=== PATIENT | male | born 1950 | race Hispanic/Latino ===

== ENCOUNTER 2018-06-16 11:51 | Outpatient (CLI) | payer MEDICARE, BC, MEDICAID ==
--- NOTE | 2018-06-16 14:25 | ULT ---
BILATERAL RENAL ULTRASOUND: History: 67-year-old male with history of chronic kidney disease. FINDINGS: Right kidney measures 12.3 x 5.7 x 4.9 cm. The left kidney measures 12.1 x 5.5 x 6.2 cm. No renal hyd ronephrosis. No perinephric process. Prominent appearing prostate gland. Prominent column of Aneesh i nvolving the central right kidney. Bladder is unremarkable. IMPRESSION: No evidence for hydronephrosis or perinephric process or other acute process. Evidence for some enlar gement of the prostate gland but incompletely evaluated on this study with only a partially full blad willow. POS: [facility]
== END 2018-06-16 11:52 | disposition home or self-care (01) ==
LOC: BICULT 11:51
PROVIDERS: ATTEND Internal Medicine Nephrology
DX: N18.3 Chronic kidney disease, stage 3 (moderate) (principal); N40.0 Benign prostatic hyperplasia without lower urinary tract symptoms
CPT/HCPCS: 76770

== ENCOUNTER 2018-08-02 17:05 | Inpatient (IN) | payer MEDICARE, BC, MEDICAID ==
[2018-08-02 17:45] LABS: #Basophils 0.1 thou/uL (0.0-0.2); #Eosinphils 0.2 thou/uL (0.0-0.7); #Lymphocytes 1.4 thou/uL (1.20-3.40); #Monocytes 1.2 thou/uL (0.11-0.59); #Neutrophils 10.6 thou/uL (1.40-6.50); %Basophils 0.4 % (0.0-1.0); %Eosinophils 1.2 % (0.0-10.0); %Lymphocytes 10.1 % (21.0-51.0); %Monocytes 8.7 % (0.0-10.0); %Neutrophils 79.5 % (42.0-75.0); Hemoglobin 10.8 g/dL (14.0-18.0); Mean Corpuscular HGB CONC 32.1 g/dL (32.0-36.0); Mean Corpuscular Hemoglobin 30.4 pg (27.0-31.0); Mean Corpuscular Volume 94.6 fL (78.0-98.0); Mean Platelet Volume 6.4 fL (7.4-10.4); Platelet Count 306 thou/uL (130-400); RBC Distribution Width 12.6 % (11.5-14.5); Red Blood Cell (RBC) Count 3.57 mill/uL (4.70-6.10); White Blood Cell (WBC) Count 13.4 thou/uL (4.8-10.8)
[2018-08-02 18:10] LABS: ALT (SGPT) 23 U/L (8-55); AST (SGOT) 26 U/L (5-34); Albumin 3.7 g/dL (3.4-4.8); Alkaline Phosphatase 156 U/L (40-150); Anion Gap 13 mmol/L (10-20); BUN (Urea Nitrogen) 29 mg/dL (8.4-25.7); Bilirubin, Total 0.7 mg/dL (0.2-1.2); CK (CPK) 266 U/L (30-200); Calc. Creatinine Clearance 0 mL/min (70-130); Calcium 9.8 mg/dL (7.8-10.44); Carbon Dioxide 22 mmol/L (23-31); Chloride 105 mmol/L (98-107); Estimated GFR-MDRD 23; Globulin 3.9 g/dL (2.4-3.5); Glucose 134 mg/dL (80-115); Potassium 4.8 mmol/L (3.5-5.1); Protein, Total 7.6 g/dL (5.8-8.1); Sodium 135 mmol/L (136-145)
[2018-08-02] MEDS ORDERED: Azithromycin 500 MG VIAL ONE ×3 (18:26→19:27)
[2018-08-02 18:32] LABS: CKMB 4.8 ng/mL (0-6.6)
--- NOTE | 2018-08-02 19:24 | RAD ---
PORTABLE AP CHEST X-RAY: 08/02/2018 HISTORY: Chest pain. COMPARISON: None available. FINDINGS: There are interstitial and patchy parenchymal changes at the left lung base, worrisome for pneumonia. There is a probable tiny left pleural effusion present. There is a linear and slight nodular densi ty in the right upper lung zone, which is probably related to superimposition of structures, as oppos ed to a pulmonary nodule, but a follow-up PA and lateral chest x-ray is suggested. The cardiac silhouette and pulmonary vasculature are within normal limits for the portable technique of the study. Vascular calcifications are seen in the thoracic aorta. Degenerative changes are note d in the spine. IMPRESSION: 1. Pneumonia, left lung base. Followup to complete resolution is recommended. 2. Nodular density projecting over the right upper lung zone. This is probably attributable to supe rimposition of structures, but this can also be evaluated on follow-up chest x-rays. POS: [facility]
[2018-08-02 21:02] LABS: Troponin I 0.067 ng/mL (< 0.028)
[2018-08-02] MEDS ORDERED: cefTRIAXone\\ROCEPHIN 2 GM in Sodium Chloride 0.9% 100 ML IVPB SCH (22:00)
[2018-08-02 23:54] LABS: Troponin I 0.074 ng/mL (< 0.028)
--- NOTE | 2018-08-03 | CON ---
DATE OF CONSULTATION: TYPE OF CONSULTATION: Nephrology consult. REASON FOR CONSULTATION: Acute kidney injury. HISTORY OF PRESENT ILLNESS: This is a very pleasant 67-year-old gentleman, who has a baseline creatinine of 2.1 to 2.4, presented to the hospital with weakness, dizziness, and swelling in his legs. The patient was on valsartan, which was stopped due to rise in creatinine. The patient denies headache, numbness, or chest pain. PAST MEDICAL HISTORY: 1. Hypertension. 2. Hyperlipidemia. 3. Acute kidney injury with chronic kidney disease, stage 4. 4. BPH. 5. History of diabetic retinopathy. MEDICATIONS: Home medication list reviewed. Hospital medication list reviewed. ALLERGIES: REVIEWED. REVIEW OF SYSTEMS: Fifteen-point review of systems was performed and negative except for positives noted above. NECK: No swelling or lumps. NOSE: No epistaxis or discharge. EYES: No diplopia or pain. MUSCULOSKELETAL: No joint pain. NEUROPSYCHIATIC SYSTEMS: No suicidal ideation. No ideation. SKIN: Denies any rash or ulcer. CONSTITUTIONAL: No fever or chills. PHYSICAL EXAMINATION: GENERAL: On exam, the patient is awake, alert. VITAL SIGNS: Reviewed. HEAD/NECK: Normocephalic. Atraumatic. EYES: EOMI. No deformity. EARS: Clear. No ulcers. NOSE: Intact. No lesions. MOUTH: Clear. No discharge. THROAT: Clear. No exudate. LUNGS: Clear. No crackles. CARDIAC: S1, S2. No rub. ABDOMEN: Benign. Bowel sounds positive. GENITALIA/RECTUM: Gil absent. BACK/EXTREMITIES: Edema 0+. NEUROLOGICAL: Alert and motor intact. LABORATORY DATA: Labs show hemoglobin is 10.8. ASSESSMENT AND PLAN: 1. Acute kidney injury with chronic kidney disease. 2. Cardiorenal syndrome, off angiotensin receptor bubba. 3. Hypertension. Consider calcium-channel bubba. 4. Anemia, stable. 5. Medications based on GFR are appropriate. We will evaluate creatinine and evaluate the need for dialysis. I have also stopped his metformin in the past. Job ID: [id number]
[2018-08-03] MEDS ORDERED: Nitroglycerin 0.4 MG TAB (25 Tab Bottle) PO PRN (02:00)
[2018-08-03] MEDS ORDERED: Calcium Carbonate 500 MG ChewTAB PO PRN (02:00)
[2018-08-03] MEDS ORDERED: Ondansetron ODT 4 MG TAB PO PRN (02:00)
[2018-08-03] MEDS ORDERED: Acetaminophen 325 MG TAB PO PRN (02:00)
[2018-08-03] MEDS ORDERED: Ondansetron PF 4 MG/2 ML Vial IVP PRN (02:00)
[2018-08-03] MEDS ORDERED: hydrALAZINE 20 MG/ML VIAL SLOW IVP PRN (02:03)
[2018-08-03] MEDS ORDERED: Dextrose 50% Abboject 50 ML SYRINGE SLOW IVP PRN (02:04)
[2018-08-03] MEDS ORDERED: Insulin Regular 300 UNITS/3 ML VIAL SC PRN (02:04)
[2018-08-03] MEDS ORDERED: Dextrose 5% in Water 1,000 ML IV PRN (02:04)
--- NOTE | 2018-08-03 02:50 | HP ---
PRIMARY CARE PHYSICIAN: Dr. Doreen Forrest. The patient was seen and examined on August 02, 2018. CHIEF COMPLAINT: Cough with generalized weakness of 1-week duration. History obtained with the help of a consulting solution manager. HISTORY OF PRESENT ILLNESS: The patient is a 67-year-old male with diabetes mellitus type 2, chronic kidney disease, hypertension, and hyperlipidemia, presented to the emergency room with above complaints. Over the last 1 week, the patient has gradual worsening generalized weakness along with cough. The cough was productive of scanty amount of phlegm. He also had some nausea and vomiting 2 days ago that has improved. He also noticed swelling in bilateral lower extremities. He felt febrile at home, however, did not record his temperature. He denies any sick contacts or travel. No orthopnea or paroxysmal nocturnal dyspnea reported. History was limited. He denies any previous cardiac issues. Again, the patient is a poor historian. In the emergency room, initial vital signs showed temperature 98, respirations 16, pulse of 87, blood pressure of 147/76 with O2 saturation of 97% on room air. His WBC was 13.4 with 79.5% neutrophils. Troponin was in an indeterminate range at 0.051 with normal CK-MB. His creatinine was 2.74, which is close to his baseline. His chest x-ray portable showed pneumonia in the left lung base. He received ceftriaxone and azithromycin in the emergency room. PAST MEDICAL HISTORY: 1. Diabetes mellitus type 2. 2. Hypertension. 3. Hyperlipidemia. 4. CKD stage 4. 5. Benign prostatic hypertrophy. 6. Diabetic retinopathy. PAST SURGICAL HISTORY: Reviewed with the patient and none. ALLERGIES: NO KNOWN DRUG ALLERGIES. CURRENT HOME MEDICATIONS: 1. Amlodipine 10 mg daily. 2. NovoLog Mix 70/30, 40 units in the morning and 35 units in the evening. 3. Irbesartan 150 mg daily. 4. Tradjenta 5 mg daily. 5. Metformin 1000 mg q.p.m. SOCIAL HISTORY: The patient currently lives at home with his family. He denies any current use of smoking, alcohol, or drug use. He is full code, makes his own decision with the help of his family. FAMILY HISTORY: Negative for inheritable diseases per patient report. REVIEW OF SYSTEMS: All other review of systems was reviewed and were found negative. PHYSICAL EXAMINATION: VITAL SIGNS: As discussed above. GENERAL: A 67-year-old male, in no apparent distress, feels generally weak. HEENT: Head is atraumatic, normocephalic. Sclerae anicteric. Moist mucous membranes. No oral lesion. NECK: Supple. No JVD appreciated. No carotid bruit. LUNGS: Showed bibasilar rales, more prominent at the lung base. Lungs were symmetrical. There were scattered rhonchi. No significant wheezing appreciated. HEART: S1, S2 present. Regular rate and rhythm. No rubs or gallops appreciated. ABDOMEN: Soft, obese. Bowel sounds present. No rebound or guarding. No costovertebral angle tenderness. EXTREMITIES: 2+ edema in bilateral lower extremities. No calf tenderness. SKIN: Warm and dry. LYMPH NODES: No palpable lymph nodes in the neck. PERIPHERAL VASCULAR: Radial pulses palpable bilaterally. MUSCULOSKELETAL: No joint swelling, tenderness. LAB FINDINGS: CBC showed WBC 13.4 with hemoglobin 10.8, hematocrit 33.8, platelets of 306. Chemistry showed sodium 135, potassium 4.8, chloride 105, bicarb 22, BUN 26, creatinine 2.74, glucose of 134. Troponin as discussed above. Creatinine in May was 2.19. Chest x-ray by my review as discussed above. EKG by my review showed sinus rhythm with nonspecific ST-T wave changes, especially in lateral leads. IMPRESSION: 1. Sepsis secondary to community-acquired pneumonia, suspected pneumococcal. 2. Acute kidney injury, baseline creatinine unknown. 3. Benign prostatic hypertrophy. 4. Hypertension. 5. Hyperlipidemia. 6. Elevated troponins, probably secondary to demand ischemia. 7. Bilateral lower extremity swelling, rule out congestive heart failure. 8. Anemia, suspected secondary to renal insufficiency. 9. Diabetes mellitus type 2. 10. Benign prostatic hypertrophy. PLAN: 1. The patient will be monitored on the telemetry unit. We will continue empiric antibiotics for pneumonia. We will hold irbesartan and metformin. We will also discontinue amlodipine due to lower extremity edema. He is currently saturating 92% on 3 L nasal cannula. We will hold IV fluids for now. We will recheck labs on a daily basis. Echocardiogram will be obtained. Fluid restriction. 2. The patient will require 2 to 3 days for stabilization. Plan of care was discussed with the patient in detail. He stated understanding. Job ID: [id number]
[2018-08-03 04:38] VITALS: BMI 38.0
[2018-08-03 06:51] LABS: Anion Gap 12 mmol/L (10-20); BUN (Urea Nitrogen) 29 mg/dL (8.4-25.7); Calc. Creatinine Clearance 37 mL/min (70-130); Calcium 9.5 mg/dL (7.8-10.44); Carbon Dioxide 24 mmol/L (23-31); Chloride 106 mmol/L (98-107); Estimated GFR-MDRD 23; Glucose 160 mg/dL (80-115); Potassium 5.2 mmol/L (3.5-5.1); Sodium 137 mmol/L (136-145)
--- NOTE | 2018-08-03 09:25 | ULT ---
BILATERAL LOWER EXTREMITY VENOUS DOPPLER ULTRASOUND: DATE: 08/03/2018. COMPARISON: None. HISTORY: Swelling, edema, assess for DVT. TECHNIQUE: Multiplanar, evangelista scale sonographic imaging of the venous structures bilateral lower extremities obta ined with color flow and spectral analysis. FINDINGS: Bilateral common femoral veins, femoral veins, and popliteal veins demonstrate normal blood flow, aug mentation, and compression. Bilateral greater saphenous veins, profunda femoral vein, and posterior tibial vein are patent as well. No evidence for DVT is seen on either side. IMPRESSION: No evidence for deep venous thrombosis of either lower extremity. POS: [facility]
--- NOTE | 2018-08-03 09:28 | ULT ---
BILATERAL RENAL ULTRASOUND: Date: 08/03/18 COMPARISON: None. HISTORY: Acute kidney injury, elevated renal function. TECHNIQUE: Multiplanar Eason scale sonographic imaging of the kidneys and urinary bladder obtained. FINDINGS: Right kidney measures 10.7 x 4.9 x 5.4 cm. Left kidney measures 11.0 x 5.7 x 5.9 cm. No renal mass, h ydronephrosis, or renal stone seen on either side. IMPRESSION: No acute findings. POS: KHALIDA
[2018-08-03] MEDS: Enoxaparin Sodium 30 MG/0.3 ML SYRINGE SC SCH (09:39)
[2018-08-03] MEDS: Aspirin 325 MG TAB PO SCH (09:39)
[2018-08-03] MEDS: hydrALAZINE 25 MG TAB PO SCH ×2 (09:40→20:55)
--- NOTE | 2018-08-03 09:40 | RAD ---
PA AND LATERAL CHEST: Date: 08/03/18 HISTORY: Shortness of breath. Follow-up pneumonia. COMPARISON: 08/02/18. FINDINGS: The patchy parenchymal changes at the left lung base do appear improved from prior study. There is mi ld increase in interstitial densities bilaterally, greater on the right, especially in the right mid lung zone at the right lung base, with slight patchy density in the right suprahilar as well as right infrahilar regions, and mild patchy density in the left mid lung zone, worrisome for either asymmetr ic pulmonary edema or infectious process. The cardiac silhouette is within normal limits. No other in terval change. IMPRESSION: 1. Increase in interstitial densities bilaterally compared to prior study with greater patchy pa renchymal changes in the right supra and infrahilar regions, as well as left mid lung zone. Parenchym al changes of the left lung base do appear mildly improved. Findings may be related to either asymmet jef pulmonary edema or developing infectious process. 2. Remote right-sided rib fractures. POS: [facility]IDA
--- NOTE | 2018-08-03 12:25 | PRG ---
DATE OF SERVICE: 08/03/2018 SUBJECTIVE: Patient was seen and examined at bedside and overnight events noted. Patient denies any shortness of breath or chest pain or palpitation. No history of nausea or vomiting or diarrhea or fever or chills or cramps. OBJECTIVE: GENERAL: This is a well-built male, in no apparent distress. VITAL SIGNS: Temperature 99.1, pulse 96, respiratory rate 22. Blood pressure 144/74. HEENT: Atraumatic, normocephalic. Oral mucosa is moist NECK: Supple. CARDIOVASCULAR: S1, S2 heard. Rate and rhythm regular. RESPIRATORY: Clear to auscultation. GASTROINTESTINAL: Abdomen is soft. MUSCULOSKELETAL: No tenderness. No edema. DERMATOLOGIC: No skin rash. NEUROLOGIC: Alert and awake and oriented X3. No focal neurologic deficits. Moving all the extremities. PSYCHIATRIC: Mood and affect normal. LABORATORY DATA: Potassium is 5.2, BUN is 29, creatinine is 2. ASSESSMENT AND PLAN 1. Acute kidney injury on chronic kidney disease. Avoid nephrotoxins. 2. Hypertension. 3. Anemia. 4. Hyperkalemia - follow potassium. Job ID: [id number] [facility]
--- NOTE | 2018-08-03 13:24 | PDOC.PN ---
- Subjective Encounter Start Date: 08/03/18 Encounter Start Time: 13:00 Subjective: f/u for bilat CAP on current Rocephin/Zithromax feeling better -: today. No prior hx of PNA. - Objective Resuscitation Status - Order Detail: 08/03/18 02:00 Resuscitation Status Routine Resuscitation Status: FULL: Full Resuscitation MAR Reviewed: Yes Vital Signs & Weight: Vital Signs (12 hours) Temp Pulse Resp BP Pulse Ox 08/03/18 11:37 99.3 F 103 H 22 H 140/69 93 L 08/03/18 10:11 102 H 18 94 L 08/03/18 09:40 96 08/03/18 09:34 99.1 F 96 22 H 144/74 H 93 L 08/03/18 06:51 85 L 08/03/18 06:49 93 20 91 L 08/03/18 04:00 98.5 F 95 20 139/71 91 L 08/03/18 03:45 92 L Weight Weight 228 lb 13.437 oz I&O: 08/02/18 08/03/18 08/04/18 06:59 06:59 06:59 Intake Total 260 Output Total 200 Balance 60 Result Diagrams: 08/02/18 17:36 08/03/18 05:01 Additional Labs: Accuchecks 08/02/18 22:37 POC Glucose 130 H Microbiology 08/02/18 18:19 Venous blood - Left Hand Blood Culture - Preliminary Specimen has been received and culture in progress. No Growth to date. 08/02/18 18:15 Venous blood - Right Arm Blood Culture - Preliminary Specimen has been received and culture in progress. No Growth to date. Radiology Reviewed by me: Yes (PCXR - patchy infiltrates bilat, LE sono - neg for DVT) EKG Reviewed by me: Yes (Tele - SR) Phys Exam - Physical Examination Constitutional: NAD HEENT: PERRLA, sclera anicteric, oral pharynx no lesions Neck: no nodes, no JVD, supple, full ROM few scattered coarse sounds S1, S2 Cardiovascular: RRR, no significant murmur, no rub, gallop Gastrointestinal: soft, non-tender, no distention, positive bowel sounds Musculoskeletal: pulses present, edema present Neurological: normal sensation, moves all 4 limbs Psychiatric: A&O x 3 Skin: normal turgor, cap refill <2 seconds Dx/Plan (1) Sepsis Code(s): A41.9 - SEPSIS, UNSPECIFIED ORGANISM Status: Acute Comment: Suspected pneumococcal and due to PNA, continue IV Rocephin/Zithromax (2) Community acquired bacterial pneumonia Code(s): J15.9 - UNSPECIFIED BACTERIAL PNEUMONIA Status: Acute Comment: Continue Rocephin/Zithromax, Duonebs (3) BETHANY (acute kidney injury) Code(s): N17.9 - ACUTE KIDNEY FAILURE, UNSPECIFIED Status: Acute Comment: Avoid nephrotoxic meds and limit contrast exposure, serial monitoring (4) CKD (chronic kidney disease), stage III Code(s): N18.3 - CHRONIC KIDNEY DISEASE, STAGE 3 (MODERATE) Status: Chronic Comment: See above, Renal sono negative (5) DM II (diabetes mellitus, type II), controlled Code(s): E11.9 - TYPE 2 DIABETES MELLITUS WITHOUT COMPLICATIONS Status: Chronic Comment: Hold home DM regimen due to BETHANY, continue ISS, ADA (6) Demand ischemia Code(s): I24.8 - OTHER FORMS OF ACUTE ISCHEMIC HEART DISEASE Status: Acute Comment: No evidence of ACS, suspect due to BETHANY/CKD - Plan plan discussed w/ family, continue antibiotics, social media editor, respiratory therapy Stable currently -: Continue Rocephin/Zithromax -: Duonebs q4h -: 2D echo pending -: AM lab: BMP, CBC * .
[2018-08-03] MEDS: Insulin Regular 300 UNITS/3 ML VIAL SC PRN (18:08)
[2018-08-03] MEDS: Azithromycin 500 MG in Sodium Chloride 0.9% 250 ML 250 ML IVPB SCH (20:55)
[2018-08-03] MEDS: cefTRIAXone\\ROCEPHIN 2 GM in Sodium Chloride 0.9% 100 ML IVPB SCH (22:25)
[2018-08-04 05:49] LABS: #Eosinphils 0.1 thou/uL (0.0-0.7); #Lymphocytes 1.2 thou/uL (1.20-3.40); #Monocytes 0.9 thou/uL (0.11-0.59); #Neutrophils 8.4 thou/uL (1.40-6.50); %Basophils 0.2 % (0.0-1.0); %Eosinophils 0.7 % (0.0-10.0); %Lymphocytes 11.4 % (21.0-51.0); %Monocytes 8.7 % (0.0-10.0); %Neutrophils 79.1 % (42.0-75.0); Mean Corpuscular HGB CONC 32.9 g/dL (32.0-36.0); Mean Corpuscular Hemoglobin 31.5 pg (27.0-31.0); Mean Corpuscular Volume 95.5 fL (78.0-98.0); Mean Platelet Volume 6.5 fL (7.4-10.4); Platelet Count 302 thou/uL (130-400); RBC Distribution Width 12.4 % (11.5-14.5); Red Blood Cell (RBC) Count 3.16 mill/uL (4.70-6.10); White Blood Cell (WBC) Count 10.6 thou/uL (4.8-10.8)
[2018-08-04 06:00] LABS: Anion Gap 12 mmol/L (10-20); BUN (Urea Nitrogen) 31 mg/dL (8.4-25.7); Calc. Creatinine Clearance 39 mL/min (70-130); Calcium 9.4 mg/dL (7.8-10.44); Carbon Dioxide 23 mmol/L (23-31); Chloride 105 mmol/L (98-107); Estimated GFR-MDRD 23; Glucose 218 mg/dL (80-115); Potassium 4.8 mmol/L (3.5-5.1); Sodium 135 mmol/L (136-145)
[2018-08-04] MEDS: Aspirin 325 MG TAB PO SCH (08:30)
[2018-08-04] MEDS: Enoxaparin Sodium 30 MG/0.3 ML SYRINGE SC SCH (08:30)
[2018-08-04] MEDS: Insulin Regular 300 UNITS/3 ML VIAL SC PRN ×3 (08:31→17:05)
--- NOTE | 2018-08-04 09:33 | PDOC.PN ---
- Subjective Encounter Start Date: 08/04/18 Encounter Start Time: 09:15 Subjective: f/u for PNA on Rocephin/Zithromax and pulm edema. Requiring -: high-flow O2 currently but denies CP or worsening SOB. Ate breakfast -: and voiding ok. - Objective Resuscitation Status - Order Detail: 08/03/18 02:00 Resuscitation Status Routine Resuscitation Status: FULL: Full Resuscitation MAR Reviewed: Yes Vital Signs & Weight: Vital Signs (12 hours) Temp Pulse Resp BP BP Pulse Ox 08/04/18 08:29 97.8 F 99 20 132/63 95 08/04/18 07:43 91 L 08/04/18 07:40 89 20 91 L 08/04/18 04:00 98.8 F 102 H 22 H 137/67 92 L 08/04/18 02:05 102 H 18 91 L 08/03/18 21:36 98 18 93 L Weight Admit Weight 228 lb 13.437 oz Weight 235 lb 7.259 oz I&O: 08/03/18 08/04/18 08/05/18 06:59 06:59 06:59 Intake Total 1400 Output Total 575 Balance 825 Result Diagrams: 08/04/18 04:47 08/04/18 04:47 Additional Labs: Accuchecks 08/04/18 08/03/18 08/03/18 08:00 10:54 05:34 POC Glucose 200 H 227 H 152 H Microbiology 08/02/18 18:19 Venous blood - Left Hand Blood Culture - Preliminary Specimen has been received and culture in progress. No Growth to date. 08/02/18 18:15 Venous blood - Right Arm Blood Culture - Preliminary Specimen has been received and culture in progress. No Growth to date. Laboratory Tests 08/02/18 08/02/18 08/02/18 17:36 17:36 17:36 WBC 13.4 H Hgb 10.8 L Potassium Creatinine Troponin I 0.051 H B-Natriuretic Peptide 615.3 H 08/02/18 08/02/18 08/03/18 20:31 23:08 05:01 WBC Hgb Potassium 5.2 H Creatinine 2.73 H Troponin I 0.067 H 0.074 H B-Natriuretic Peptide 08/03/18 05:01 WBC Hgb Potassium Creatinine Troponin I B-Natriuretic Peptide 439.6 H Radiology Reviewed by me: Yes (2D echo - EF 40-45%, mod LAE, anterolateral wall diminished) EKG Reviewed by me: Yes (Tele - Sinus tachycardia) Phys Exam - Physical Examination somnolent, opens eyes to questions HEENT: PERRLA, sclera anicteric, oral pharynx no lesions Neck: no nodes, no JVD, supple, full ROM coarse sounds bilat, diminished in bilat kurtz tachycardic S1, S2 Cardiovascular: no significant murmur, no rub, gallop obese Gastrointestinal: soft, no distention, positive bowel sounds Musculoskeletal: pulses present, edema present Neurological: normal sensation, moves all 4 limbs Psychiatric: A&O x 3 Skin: normal turgor, cap refill <2 seconds Dx/Plan (1) Sepsis Code(s): A41.9 - SEPSIS, UNSPECIFIED ORGANISM Status: Acute Comment: Suspected pneumococcal and due to PNA, continue IV Rocephin/Zithromax (2) Community acquired bacterial pneumonia Code(s): J15.9 - UNSPECIFIED BACTERIAL PNEUMONIA Status: Acute Comment: Continue Rocephin/Zithromax, Duonebs, add Solumedrol 40mg IV q6h (3) BETHANY (acute kidney injury) Code(s): N17.9 - ACUTE KIDNEY FAILURE, UNSPECIFIED Status: Acute Comment: Avoid nephrotoxic meds and limit contrast exposure, serial monitoring (4) CKD (chronic kidney disease), stage III Code(s): N18.3 - CHRONIC KIDNEY DISEASE, STAGE 3 (MODERATE) Status: Chronic Comment: See above, Renal sono negative (5) DM II (diabetes mellitus, type II), controlled Code(s): E11.9 - TYPE 2 DIABETES MELLITUS WITHOUT COMPLICATIONS Status: Chronic Comment: Hold home DM regimen due to BETHANY, continue ISS, ADA, resume Novolog 70/30 with 40u qam and 35u qhs (6) Demand ischemia Code(s): I24.8 - OTHER FORMS OF ACUTE ISCHEMIC HEART DISEASE Status: Acute Comment: Consult Cardiology regarding elevated troponin I and depressed EF on Echo. Continue ASA 325mg daily - Plan plan discussed w/ family, continue antibiotics, director of social media marketing, respiratory therapy Continue Rocephin/Zithromax -: Add Solumedrol 40mg IV q6h -: Lasix 40mg IV x 1 now then BID -: Consult Cardiology regarding elevated Troponin I/depressed EF -: AM lab: BMP, CBC * .
[2018-08-04] MEDS: hydrALAZINE 25 MG TAB PO SCH ×2 (10:26→21:16)
[2018-08-04 10:33] LABS: Actual Bicarbonate (HCO3a) 26.3 mEq/L (22-28); Base Excess (BEa) -0.8 mEq/L (-2.0 to +3.0); CO2 Tension 55.1 mmHg (35.0-45.0); Calcium, Ionized 1.25 mmol/L (1.12-1.30); Carboxyhemoglobin (COHb) 1.8 gm% (0.0-3.0); Hemoglobin (Hb) 10.5 g/dL (14.0-18.0); Potassium - ABG Lab 4.74 mmol/L (3.70-5.30)
[2018-08-04] MEDS ORDERED: Furosemide 40 MG/4 ML VIAL SLOW IVP SCH (10:45)
[2018-08-04 10:57] LABS: ALV-art Gradient 21.755 (0-20); O2 Tension (PaO2) 59.1 mmHg (> 80.0); Puncture Site RRA
--- NOTE | 2018-08-04 11:32 | PRG ---
DATE OF SERVICE: 08/04/2018 SUBJECTIVE: Patient was seen and examined at bedside and overnight events noted. Patient denies any shortness of breath or chest pain or palpitation. No history of nausea or vomiting or diarrhea or fever or chills or cramps. OBJECTIVE: GENERAL: This is a well-built male, in no apparent distress. VITAL SIGNS: Temperature 97.8. Heart rate 99. Respiratory rate 20. Blood pressure 132/63. HEENT: Atraumatic, normocephalic. Oral mucosa is moist NECK: Supple. CARDIOVASCULAR: S1, S2 heard. Rate and rhythm regular. RESPIRATORY: Clear to auscultation. GASTROINTESTINAL: Abdomen is soft. MUSCULOSKELETAL: No tenderness. No edema. DERMATOLOGIC: No skin rash. NEUROLOGIC: Alert and awake and oriented X3. No focal neurologic deficits. Moving all the extremities. PSYCHIATRIC: Mood and affect normal. LABORATORY DATA: Potassium 4.8, BUN is 31, creatinine is 2.7. ASSESSMENT AND PLAN: 1. Acute kidney injury on chronic kidney disease, stage 3. Renal function is stable. No acute indication for dialysis. 2. Hyperkalemia, better. 3. Edema. 4. Hypertension, stable. 5. Anemia. 6. Edema. 7. Cardiorenal syndrome. 8. Renal function is stable. Acute kidney injury, most likely from sepsis. We will follow. Avoid nephrotoxins. Job ID: [id number]
[2018-08-04] MEDS: Furosemide 40 MG/4 ML VIAL SLOW IVP SCH (14:46)
[2018-08-04] MEDS: Azithromycin 500 MG in Sodium Chloride 0.9% 250 ML 250 ML IVPB SCH (17:07)
[2018-08-04] MEDS: Carvedilol 3.125 MG TAB PO SCH (17:07)
[2018-08-04] MEDS ORDERED: Non-Formulary Item 1 EACH (Insulin Aspart Prot/Insuln Asp [Novolog Mix 70-30 Flexpen Syrn SQ SCH (21:00)
[2018-08-04] MEDS: cefTRIAXone\\ROCEPHIN 2 GM in Sodium Chloride 0.9% 100 ML IVPB SCH (21:15)
[2018-08-04] MEDS: Insulin NPH/Reg Insulin Hm 300 UNITS/3 ML VIAL SC SCH (21:16)
[2018-08-04] MEDS: Atorvastatin Calcium 20 MG TAB PO SCH (21:16)
--- NOTE | 2018-08-05 02:48 | CON ---
DATE OF CONSULTATION: 08/04/2018 HISTORY OF PRESENT ILLNESS: Mr. Solo is a 67-year-old male, who presented at 6 in the evening 2 nights ago. He presented with cough of 1 week duration. He is a poor historian. Subsequently, he has been admitted, placed on BiPAP and antimicrobial therapy. He has chronic kidney disease. PAST MEDICAL HISTORY: Remarkable for diabetes, hypertension, lipid disorder, diabetic retinopathy, and BPH. MEDICATIONS: Prior to admission, he was on; 1. Amlodipine. 2. Insulin. 3. Irbesartan. 4. Tradjenta. 5. Metformin. SOCIAL HISTORY: Nonsmoker, nondrinker, nondrug user. FAMILY HISTORY: Negative for lung disease in early age. REVIEW OF SYSTEMS: 10 point review of systems completed, otherwise negative. PHYSICAL EXAMINATION: GENERAL: He has BiPAP on. He appears comfortable. He is in no distress. VITAL SIGNS: He is afebrile. Heart rate is 84, respiratory rate is 20, and oximetry is 96 to 98 on BiPAP. This afternoon, he switched to nasal cannula; his oximetry is 93 on a 4 L cannula. HEAD: Unremarkable. NECK: Unremarkable. LUNGS: Remarkable for rhonchi bilaterally. HEART: Regular rhythm. S1 and S2 are normal. ABDOMEN: Soft and nontender. EXTREMITIES: Without clubbing, cyanosis, or edema. DIAGNOSTIC DATA: Echocardiogram shows an ejection fraction of 40% to 45% with anterolateral dyskinesis, [id number] mitral regurgitation. Chest radiograph from yesterday shows patchy bilateral infiltrates. IMPRESSION: Probable pneumonia. Co-existing cardiomyopathy, likely related to his diabetes. With his anterolateral asymmetry, one would wonder about a past myocardial infarction. Cardiology should be consulted. Lab has been reviewed. He has anemia with a hemoglobin of 10. His creatinine has been 2.73 today, 2.74 two days ago. Blood cultures are negative. Antimicrobial therapy probably can be simplified tomorrow. His steroid dosing probably can be simplified as well. Hopefully, he will continue to improve off BiPAP. TIME SPENT: This was a 50-minute consult, with greater than 50% of the time was spent on the unit coordinating care. Job ID: [id number] [id number]
[2018-08-05 04:46] LABS: Anion Gap 12 mmol/L (10-20); BUN (Urea Nitrogen) 36 mg/dL (8.4-25.7); Calc. Creatinine Clearance 37 mL/min (70-130); Calcium 9.8 mg/dL (7.8-10.44); Carbon Dioxide 25 mmol/L (23-31); Chloride 105 mmol/L (98-107); Estimated GFR-MDRD 22; Glucose 115 mg/dL (80-115); Potassium 5.2 mmol/L (3.5-5.1); Sodium 137 mmol/L (136-145)
[2018-08-05 05:19] LABS: Band 4 % (5-11); Hemoglobin 10.4 g/dL (14.0-18.0); Lymphocytes 8 % (21-51); MDiff Complete? YES; Mean Corpuscular HGB CONC 33.8 g/dL (32.0-36.0); Mean Corpuscular Hemoglobin 31.9 pg (27.0-31.0); Mean Corpuscular Volume 94.3 fL (78.0-98.0); Mean Platelet Volume 6.7 fL (7.4-10.4); Monocytes 1 % (0-10); Neutrophil 87 % (42-75); Platelet Count 345 thou/uL (130-400); RBC Distribution Width 12.4 % (11.5-14.5); Red Blood Cell (RBC) Count 3.27 mill/uL (4.70-6.10); White Blood Cell (WBC) Count 9.4 thou/uL (4.8-10.8)
[2018-08-05] MEDS: Furosemide 40 MG/4 ML VIAL SLOW IVP SCH ×2 (06:00→09:39)
--- NOTE | 2018-08-05 08:01 | PDOC.PN ---
- Subjective Encounter Start Date: 08/05/18 Encounter Start Time: 07:45 Subjective: f/u for acute hypoxic resp failure, PNA and CHF. Off BiPAP currently -: and tolerating O2 via NC. Feels better overall. - Objective Resuscitation Status - Order Detail: 08/03/18 02:00 Resuscitation Status Routine Resuscitation Status: FULL: Full Resuscitation MAR Reviewed: Yes Vital Signs & Weight: Vital Signs (12 hours) Temp Pulse Resp BP BP Pulse Ox 08/05/18 07:51 93 L 08/05/18 07:20 99.4 F 100 18 140/77 93 L 08/05/18 07:08 102 H 20 94 L 08/05/18 03:39 98.3 F 101 H 16 141/75 H 93 L 08/05/18 02:05 97 16 93 L 08/05/18 00:00 98.6 F 98 22 H 144/76 H 93 L 08/04/18 22:31 89 16 92 L 08/04/18 21:16 79 121/69 08/04/18 20:00 97.9 F 82 18 145/90 H 98 Weight Admit Weight 228 lb 13.437 oz Weight 231 lb 7.766 oz I&O: 08/04/18 08/05/18 08/06/18 06:59 06:59 06:59 Intake Total 1400 1795 Output Total 575 925 Balance 825 870 Result Diagrams: 08/05/18 03:45 08/05/18 03:45 Additional Labs: Accuchecks 08/05/18 08/04/18 08/04/18 05:33 21:10 16:28 POC Glucose 127 H 210 H 208 H 08/04/18 08/04/18 08/04/18 10:50 08:00 05:42 POC Glucose 165 H 200 H 229 H 08/03/18 08/03/18 20:18 17:05 POC Glucose 212 H 203 H Radiology Reviewed by me: Yes (2D echo - EF 40-45%) EKG Reviewed by me: Yes (Tele - Sinus tach in low 100's) Phys Exam - Physical Examination alert, smiling HEENT: PERRLA, sclera anicteric, oral pharynx no lesions Neck: no nodes, no JVD, supple, full ROM few exp wheezing, diminished in bases tachycardic S1, S2 Cardiovascular: no significant murmur, no rub, gallop obese Gastrointestinal: soft, non-tender, no distention, positive bowel sounds Musculoskeletal: pulses present, edema present Neurological: normal sensation, moves all 4 limbs Psychiatric: A&O x 3 Skin: normal turgor, cap refill <2 seconds Dx/Plan (1) Acute respiratory failure with hypoxia Code(s): J96.01 - ACUTE RESPIRATORY FAILURE WITH HYPOXIA Status: Acute Comment: Improved with trial of BiPAP now d/c'd, continue O2 via NC, see below (2) Community acquired bacterial pneumonia Code(s): J15.9 - UNSPECIFIED BACTERIAL PNEUMONIA Status: Acute Comment: Continue Rocephin/Zithromax, Duonebs, add Solumedrol 40mg IV q6h (3) Sepsis Code(s): A41.9 - SEPSIS, UNSPECIFIED ORGANISM Status: Acute Comment: Suspected pneumococcal and due to PNA, continue IV Rocephin/Zithromax, resolving (4) BETHANY (acute kidney injury) Code(s): N17.9 - ACUTE KIDNEY FAILURE, UNSPECIFIED Status: Acute Comment: Avoid nephrotoxic meds and limit contrast exposure, serial monitoring (5) CKD (chronic kidney disease), stage III Code(s): N18.3 - CHRONIC KIDNEY DISEASE, STAGE 3 (MODERATE) Status: Chronic Comment: See above, Renal sono negative (6) DM II (diabetes mellitus, type II), controlled Code(s): E11.9 - TYPE 2 DIABETES MELLITUS WITHOUT COMPLICATIONS Status: Chronic Comment: Hold home DM regimen due to BETHANY, continue ISS, ADA, resume Novolog 70/30 with 40u qam and 35u qhs (7) Demand ischemia Code(s): I24.8 - OTHER FORMS OF ACUTE ISCHEMIC HEART DISEASE Status: Acute Comment: Consult Cardiology regarding elevated troponin I and depressed EF on Echo. Continue ASA 325mg daily - Plan plan discussed w/ family, continue antibiotics, social services analyst, respiratory therapy, out of bed/ambulate, DVT proph w/SCDs Stable currently -: Continue Rocephin/Zithromax -: Continue Solumedrol another 24h -: OOB/ambulate -: Transfer to telemetry * AM lab: BMP * Likely home in 24h
[2018-08-05] MEDS: Carvedilol 3.125 MG TAB PO SCH (08:28)
[2018-08-05] MEDS: Aspirin 325 MG TAB PO SCH (08:28)
[2018-08-05] MEDS: hydrALAZINE 25 MG TAB PO SCH ×2 (08:29→20:42)
[2018-08-05] MEDS: Enoxaparin Sodium 30 MG/0.3 ML SYRINGE SC SCH (08:29)
[2018-08-05] MEDS: Insulin NPH/Reg Insulin Hm 300 UNITS/3 ML VIAL SC SCH ×2 (08:30→20:46)
[2018-08-05] MEDS ORDERED: Carvedilol 3.125 MG TAB PO SCH (08:48)
[2018-08-05] MEDS ORDERED: Non-Formulary Item 1 EACH (Insulin Aspart Prot/Insuln Asp [Novolog Mix 70-30 Flexpen Syrn SQ SCH (09:00)
[2018-08-05] MEDS: Insulin Regular 300 UNITS/3 ML VIAL SC PRN (11:10)
--- NOTE | 2018-08-05 13:49 | CON ---
DATE OF CONSULTATION: HISTORY OF PRESENT ILLNESS: The patient is a 67-year-old gentleman, who presents with increasing dyspnea. The patient has previously undergone a cardiac evaluation. He states approximately 2 years ago that he was seen by a helper/driver in [place]. He was told that he was in reasonably good health. The patient does suffer from diabetes mellitus and chronic renal insufficiency. The patient was admitted with fevers and chills. He was admitted with possible pneumonia. PAST MEDICAL HISTORY: 1. Diabetes mellitus. 2. Hypertension. 3. Chronic renal insufficiency. 4. Dyslipidemia. 5. Diabetic retinopathy. PAST SURGICAL HISTORY: Eye surgery. ALLERGIES: NO KNOWN DRUG ALLERGIES. MEDICATIONS: 1. Norvasc 10 daily. 2. Metformin 1000 nightly. 3. Tradjenta 5 daily. 4. Avapro 150 daily. 5. Insulin. SOCIAL HISTORY: Nonsmoker. FAMILY HISTORY: There is a positive family history of coronary artery disease. REVIEW OF SYSTEMS: Unremarkable. PHYSICAL EXAMINATION: GENERAL: Obese gentleman with blood pressure 151/79. NECK: Full. LUNGS: Have bilateral wheezes. HEART: Regular rate and rhythm. Normal S1 and S2. ABDOMEN: Distended. EXTREMITIES: Showed trace bilateral edema. VASCULAR: Radial pulses are 2+. SKIN: Warm and dry. LABORATORY DATA: Sodium 135, potassium 4.8, chloride 105, bicarbonate 23, BUN 31, and creatinine 2.73. Glucose 218. BNP was 439. White blood cell count is 10.6 , hemoglobin 10.0, hematocrit 30.2, and platelets are 302. His EKG reveals normal sinus rhythm with a T wave abnormality suggestive of ischemia. His chest x-ray revealed a normal cardiac silhouette with possible right-sided pneumonia with right-sided infiltrate. IMPRESSION: 1. Respiratory failure, possibly due to pneumonia. 2. Decreased left ventricular systolic function. 3. Renal failure. 4. Hypertension. 5. Dyslipidemia. 6. Obesity. This gentleman presents with pneumonia and respiratory failure. He has a mild decrease in left ventricular function. The patient will be started on Coreg. We would recommend adding lipid lowering medication since he is diabetic. We will obtain records from his previous helper/driver and will follow this patient with you through his hospitalization. Job ID: [id number] [facility]
--- NOTE | 2018-08-05 15:31 | PRG ---
DATE OF SERVICE: 08/05/2018 SUBJECTIVE: Patient was seen and examined at bedside and overnight events noted. Patient denies any shortness of breath or chest pain or palpitation. No history of nausea or vomiting or diarrhea or fever or chills or cramps. OBJECTIVE: GENERAL: This is a well-built male, in no apparent distress. VITAL SIGNS: Temperature 99.2. Heart rate 99. Respiratory rate 18. Blood pressure 133/92. HEENT: Atraumatic, normocephalic. Oral mucosa is moist NECK: Supple. CARDIOVASCULAR: S1, S2 heard. Rate and rhythm regular. RESPIRATORY: Clear to auscultation. GASTROINTESTINAL: Abdomen is soft. MUSCULOSKELETAL: No tenderness. No edema. DERMATOLOGIC: No skin rash. NEUROLOGIC: Alert and awake and oriented X3. No focal neurologic deficits. Moving all the extremities. PSYCHIATRIC: Mood and affect normal. LABORATORY DATA: Potassium is 5.2, BUN is 3.6, and creatinine is 2.8. ASSESSMENT AND PLAN: 1. Acute kidney injury on chronic kidney disease, stage 3, most likely from sepsis. Renal function seems to be stable, making more urine and clinically better. We will continue to monitor. Avoid nephrotoxins. No acute indication for dialysis. 2. Hyperkalemia, limit potassium. 3. Edema, controlled. 4. Hypertension. 5. Anemia. 6. Cardiorenal syndrome. Overall, renal function is stable. No acute indication for dialysis. Job ID: [id number]
--- NOTE | 2018-08-05 15:53 | EKG ---
Test Reason : Blood Pressure : / mmHG Vent. Rate : 098 BPM Atrial Rate : 098 BPM P-R Int : 184 ms QRS Dur : 096 ms QT Int : 366 ms P-R-T Axes : 037 -15 100 degrees QTc Int : 467 ms Normal sinus rhythm Cannot rule out Anterior infarct , age undetermined T wave abnormality, consider lateral ischemia Abnormal ECG Confirmed by BLAYNE FLORES ([id number]), editorial assistant EULOGIO SHERWOOD ([id number]) on 08/05/2018 3:53:08 PM Referred By: Confirmed By:BLAYNE FLORES
[2018-08-05] MEDS: Carvedilol 6.25 MG TAB PO SCH (17:14)
[2018-08-05] MEDS: Azithromycin 500 MG in Sodium Chloride 0.9% 250 ML 250 ML IVPB SCH (17:14)
--- NOTE | 2018-08-05 17:39 | PRG ---
DATE OF SERVICE: 08/05/2018 SUBJECTIVE: States he feels much better today. He is on nasal cannula 3 L. OBJECTIVE: VITAL SIGNS: His oximetry is 94 to 96. He is afebrile. Heart rate is 90, respiratory rate 19, and blood pressure 124/71. LUNGS: Remarkable for crackles bilaterally. He is in no distress. HEART: Regular rhythm. ABDOMEN: Soft. EXTREMITIES: Without asymmetry. LABORATORY DATA: White count 9.4, hemoglobin 10.4, and platelets 345. Sodium 137, potassium 5.2, chloride 105, bicarb 25, BUN 36, and creatinine 2.8. Creatinine was 2.7 yesterday. IMPRESSION: 1. Pneumonia. 2. Chronic kidney disease. 3. Diabetes. PLAN: Continue current supportive care. He probably will need noninvasive ventilatory support in the morning. If he remains stable, he can move to a medical bed. Job ID: [id number]
[2018-08-05] MEDS: Atorvastatin Calcium 20 MG TAB PO SCH (20:42)
[2018-08-05] MEDS: cefTRIAXone\\ROCEPHIN 2 GM in Sodium Chloride 0.9% 100 ML IVPB SCH (20:47)
[2018-08-06 06:02] LABS: Anion Gap 13 mmol/L (10-20); BUN (Urea Nitrogen) 53 mg/dL (8.4-25.7); Calc. Creatinine Clearance 36 mL/min (70-130); Calcium 9.8 mg/dL (7.8-10.44); Carbon Dioxide 24 mmol/L (23-31); Chloride 106 mmol/L (98-107); Estimated GFR-MDRD 22; Glucose 81 mg/dL (80-115); Potassium 5.1 mmol/L (3.5-5.1); Sodium 138 mmol/L (136-145)
[2018-08-06] MEDS: Carvedilol 6.25 MG TAB PO SCH (08:03)
[2018-08-06] MEDS: Enoxaparin Sodium 30 MG/0.3 ML SYRINGE SC SCH (08:03)
[2018-08-06] MEDS: Aspirin 325 MG TAB PO SCH (08:03)
[2018-08-06] MEDS: hydrALAZINE 25 MG TAB PO SCH (08:03)
[2018-08-06] MEDS: Furosemide 40 MG/4 ML VIAL SLOW IVP SCH (08:04)
[2018-08-06] MEDS: Insulin NPH/Reg Insulin Hm 300 UNITS/3 ML VIAL SC SCH (08:05)
--- NOTE | 2018-08-06 10:32 | PRG ---
DATE OF SERVICE: 08/06/2018 SUBJECTIVE: Patient was seen and examined at bedside and overnight events noted. Patient denies any shortness of breath or chest pain or palpitation. No history of nausea or vomiting or diarrhea or fever or chills or cramps. OBJECTIVE: GENERAL: This is a well-built male, in no apparent distress. VITAL SIGNS: Temperature 96.8. Heart rate 80. Respiratory rate 18. Blood pressure 166/79. HEENT: Atraumatic, normocephalic. Oral mucosa is moist NECK: Supple. CARDIOVASCULAR: S1, S2 heard. Rate and rhythm regular. RESPIRATORY: Clear to auscultation. GASTROINTESTINAL: Abdomen is soft. MUSCULOSKELETAL: No tenderness. No edema. DERMATOLOGIC: No skin rash. NEUROLOGIC: Alert and awake and oriented X3. No focal neurologic deficits. Moving all the extremities. PSYCHIATRIC: Mood and affect normal. LABORATORY DATA: Potassium is 5.1, BUN is 53, and creatinine is 2.9. ASSESSMENT AND PLAN: 1. Acute kidney injury on chronic kidney disease, stage 4. Renal function is stable. 2. Chronic kidney disease, stage 4. 3. Hyperkalemia, limit potassium. 4. Edema, controlled. 5. Hypertension. 6. Anemia. 7. Cardiorenal syndrome. No indication for dialysis. Renal function seems to be stable. We will closely followup. We will follow. Avoid nephrotoxins. Job ID: [id number]
[2018-08-06] MEDS: Insulin Regular 300 UNITS/3 ML VIAL SC PRN (11:05)
[2018-08-06 11:26] VITALS: BP 135/73; TEMP 97.7
--- NOTE | 2018-08-06 12:43 | PRG ---
DATE OF SERVICE: 08/06/2018 SUBJECTIVE: Jose Guadalupe Solo wants to go home today. I have explained to him that he was basically on noninvasive watch for 2 days ago. He is rapidly improving. OBJECTIVE: VITAL SIGNS: He is afebrile. Heart rate 80, respiratory rate 16, oximetry is 93 on room air. Although when he woke up this morning, he was 90 on 2.5 L. Blood pressure 135/73. LUNGS: Still remarkable for bilateral crackles. HEART: Regular rhythm. ABDOMEN: Soft. IMPRESSION: 1. Pneumonia. 2. Chronic kidney disease. Creatinine is 2.91. 3. Diabetes. 4. Left ventricular systolic dysfunction. PLAN: Continue supportive care. I have recommended him to stay in the hospital at least one more day. Job ID: [id number]
[2018-08-06] MEDS ORDERED: Carvedilol 6.25 MG TAB PO SCH (17:00)
--- NOTE | 2018-08-07 06:22 | DIS ---
DATE OF ADMISSION: 08/02/2018 DATE OF DISCHARGE: 08/06/2018 DISCHARGE DIAGNOSES: 1. Acute hypoxic respiratory failure secondary to #2, improved. 2. Community-acquired bacterial pneumonia, suspected gram-positive cocci. 3. Sepsis secondary to #2, resolved. 4. Acute kidney injury on chronic kidney disease, stage 3. 5. Diabetes mellitus type 2, insulin requiring. 6. Demand ischemia. CONSULTATIONS: 1. Dr. Marshall with Nephrology Service. 2. Dr. Russell with Pulmonology Service. 3. Dr. Vora with Cardiology Service. PERTINENT LAB AND X-RAY FINDINGS: Creatinine ranged between 2.73 to 2.91. Estimated GFR ranged between 22 to 23. Hemoglobin A1c 7.0. Lactic acid level 1.2. Troponin I ranged between 0.051 to 0.074. BNP ranged between 440 to 615. CBC showed hemoglobin ranged between 10.0 to 10.8. Blood cultures x2 dated 08/02/2018, showed no growth at 48 hours. Portable chest x-ray dated 08/02/2018, showed left lung base infiltrate concerning for pneumonia. Renal ultrasound dated 08/03/2018, showed no acute findings. Bilateral lower extremity venous Doppler study dated 08/03/2018, showed no evidence for DVT. 2D transthoracic echocardiogram dated 08/03/2018, showed technically limited study. Ejection fraction estimated at 40% to 45%. Moderate left atrial enlargement. Moderate mitral and tricuspid valve regurgitation. Cardiolite stress test dated 06/17/2016, showed no evidence of reversible or fixed ischemia with calculated ejection fraction of 56%. HOSPITAL COURSE: The patient was initially admitted after presenting with generalized weakness, cough, and shortness of breath. The patient underwent extensive evaluation with multiple consultants as stated previously, treated initially for sepsis secondarily to suspected community-acquired pneumonia. The patient was placed on broad-spectrum IV antibiotic therapy and given oxygen supplementation as well as IV Solu-Medrol. The patient clinically decompensated in regard to respiratory status requiring noninvasive mechanical ventilation with BiPAP. The patient rapidly clinically improved with a short course of BiPAP noninvasive mechanical ventilation and transferred back to the telemetry unit. The patient underwent general evaluation by the Nephrology Service after estimated GFR was noted in the mid 20s. The patient likely with chronic kidney disease stage 3 with mild exacerbation and acute kidney injury during the hospital course. No current recommendations for dialysis or a potential candidate for dialysis. The patient also underwent general evaluation by the Cardiology Service in regard to mildly depressed ejection fraction noted on a technically limited 2D transthoracic echocardiogram. The patient was placed on beta-bubba therapy in addition to aspirin and monitored for clinical response. The patient did clinically stabilize in regard to respiratory and cardiac status with general medical management. I have examined the patient at the time of discharge and discussed followup instructions. The patient verbalized understanding and agreement and ready for discharge on 08/06/2018. DISCHARGE MEDICATIONS: 1. NovoLog 70/30, 40 units subcutaneously q.a.m. and 35 units subcutaneously at bedtime. 2. Tradjenta 5 mg p.o. daily. 3. Aspirin 325 mg p.o. daily. 4. Lipitor 20 mg p.o. at bedtime. 5. Coreg 12.5 mg p.o. b.i.d. 6. Omnicef 300 mg p.o. daily x10 days. 7. Irbesartan 150 mg p.o. daily, may resume on 08/11/2018. 8. Metformin 1000 mg p.o. daily, may resume on 08/11/2018. FOLLOWUP: The patient may follow up with Dr. Doreen Forrest within 7 days of discharge. The patient may follow up with Dr. Bandar Avendano with Cardiology Service, and to call his office for appointment time and date. CONDITION ON DISCHARGE: Fair. ACTIVITY: Ad-sincere. DIET: ADA and heart healthy. CODE STATUS: Full. DISPOSITION: Home on 08/06/2018. Total time preparing and coordinating discharge is 34 minutes. Job ID: [id number]
--- NOTE | 2018-08-11 11:11 | PQF ---
[employer] Crystal Reports Winform ViewerSUNIL MENDEZ RICHA MD [id number] [address] [place] [id number] CLINICAL DOCUMENTATION CLARIFICATION FORM: POST DISCHARGE Addendum to original discharge summary date: ____ Late entry note date: __ Please exercise your independent, professional judgment in responding to the clarification form. Clinical indicators are provided on the bottom of this form for your review Please check appropriate box(s): HEART FAILURE: A. TYPE: [ ] Systolic / HFrEF [ ] Diastolic / HFpEF [ ] Combined Systolic / Diastolic B. ACUITY [ ] Acute [ ] Acute on Chronic [ ] Chronic [ ] Other diagnosis [ ] Unable to determine In addition, please specify: Present on Admission (POA): [ ] Yes [ ] No [ ] Unable to determine For continuity of documentation, please document condition throughout progress notes and discharge summary. Thank You. CLINICAL INDICATORS - SIGNS / SYMPTOMS / LABS Ejection Fraction =___40-45___ %- Discharge Summary Bilateral lower extremity swelling, rule out CHF- h&p Follow up for CHF- PN 08/05 Decreased left ventricular systolic function- Consult 08/04 Dr. Vora, PN Cardiorenal Syndrome- PN 08/04, 08/05, 08/06 BNP 615.3- Reorded 08/02 RISKS: cardiomyopathy- Discharge Summsty ckd and hypertension- h&p, discharge summary and progress notes TREATMENTS: IV lasix- PN 08/04 2D echo- Discharge Summary [employer] Win[employer] Viewer (This form is maintained as a part of the permanent medical record) 2014 [employer]. All Rights Reserved [email or web address] [phone] MTDD
== END 2018-08-06 16:02 | disposition home or self-care (01) | DRG 871 ==
LOC: ERS 17:05 → 2NO 18:28 → IMCU/EMU 08-04 12:24 → 2NO 08-05 17:06
PROVIDERS: ADMIT Internal Medicine; ATTEND Internal Medicine
DX: A40.3 Sepsis due to Streptococcus pneumoniae (principal); J15.9 Unspecified bacterial pneumonia; J96.01 Acute respiratory failure with hypoxia; I24.8 Other forms of acute ischemic heart disease; N18.4 Chronic kidney disease, stage 4 (severe); N17.9 Acute kidney failure, unspecified; I42.9 Cardiomyopathy, unspecified; E11.22 Type 2 diabetes mellitus with diabetic chronic kidney disease; I12.9 Hypertensive chronic kidney disease with stage 1 through stage 4 chronic kidney disease, or unspecified chronic kidney disease; E78.5 Hyperlipidemia, unspecified; N40.0 Benign prostatic hyperplasia without lower urinary tract symptoms; E11.319 Type 2 diabetes mellitus with unspecified diabetic retinopathy without macular edema; D64.9 Anemia, unspecified; E66.9 Obesity, unspecified; Z68.39 Body mass index [BMI] 39.0-39.9, adult; E87.5 Hyperkalemia; Z79.4 Long term (current) use of insulin
CPT/HCPCS: 36415; 36416; 71045; 71046; 76770; 80048; 80053; 82550; 82553; 82570; 82805; 83036; 83605; 83880; 84156; 84484; 85007; 85014; 85018; 85025; 85027; 87040; 93005; 93306; 93798; 93970; 94640; 94660; 94760; 96365; J0456; J0696; J1650; J1815; J1940; J2920; J7050; J7620

== ENCOUNTER 2020-08-31 10:55 | Outpatient (CLI) | payer MEDICARE, BC, MEDICAID ==
--- NOTE | 2020-08-31 11:55 | RAD ---
EXAM: Two views chest PROVIDED CLINICAL HISTORY: Kidney disease COMPARISON: 08/03/2018 FINDINGS: Cardiac and mediastinal silhouette appears within normal limits. Chronic appearing interstitial opaci ties are demonstrated. No definite focal consolidation. Vascular calcification involves the aortic arch. No pleural fluid or pneumothorax apparent. IMPRESSION: No evidence for an acute cardiopulmonary process.
== END 2020-08-31 10:56 | disposition home or self-care (01) ==
LOC: BICRAD 10:55
PROVIDERS: ATTEND Internal Medicine Nephrology
DX: N18.5 Chronic kidney disease, stage 5 (principal)
CPT/HCPCS: 71046